=== PATIENT | female | born 1965 | race Caucasian/White ===

== ENCOUNTER → 2021-12-28 | Outpatient (CLI) | payer MEDICAID ==
[~2021-12-28] VITALS: Ht 167.6 cm; Wt 90.0 kg
[~2021-12-28] MED LIST: AMBIEN 10MG10 MG PO; ARTHRITIS MED; CALCIUM W VIT D; CHANTIX 0.5MG0.5 MG PO; CLEOCIN HCL300 MG PO; CLINDAMYCIN150 MG PO; EFFEXOR 50M50 MG/TAB PO; FLEXERIL 1010 MG/TAB PO; FOSAMAX 35MG35 MG PO; FOSAMAX 70MG TA70 MG PO; INDOCIN 25MG CA25 MG PO; KLONOPIN 0.5MG0.5 MG PO; LORTAB 5/500 501 TAB PO; MEDROL 4MG DOSPA4 MG PO; MOBIC15 MG PO; NAPROSYN500 MG PO; NEURONTIN300 MG/CAP PO; NO HOME MEDICATIONS; NORCO 325 MG-51 TAB PO; NORCO 325 MG-7.1 TAB PO; PERCOCET 325 MG1 TA2 PO; PREDNISONE10 MG PO; PRILOSEC 20MG20 MG PO; PROZAC 20MG20 MG PO; PROZAC40 MG; REMERON30 MG PO; RISPERDAL2 MG; ROBAXIN 75750 MG/TAB PO; SEROQUEL XR300 MG PO; ULTRAM 50MG TAB50 MG PO; [UNRECOGNIZED DRUG - OTHER]
[2021-12-28 12:00] VITALS: BP 122/73; PULSE 63; TEMP 98.6
== END ==
LOC: EUO 10:56
DX: Z45.2 Encounter for adjustment and management of vascular access device (principal)
CPT/HCPCS: C1751; J0692